=== PATIENT | female | born 1970 | race Caucasian/White ===

== ENCOUNTER 2019-11-05 02:51 | Emergency (ER) | payer MEDICAID ==
[~2019-11-05] VITALS: Ht 160 cm; Wt 77.2 kg
[2019-11-05] MEDS ORDERED: diphenhydrAMINE 25mg capsule PO ONE (03:40)
[2019-11-05] MEDS ORDERED: DESV50TA PO (03:41)
[2019-11-05] MEDS ORDERED: QUET-1 PO (03:43)
[2019-11-05] MEDS ORDERED: LISI-600 PO (03:43)
[2019-11-05] MEDS ORDERED: OMEP10CA5 PO (03:43)
[2019-11-05 03:55] LABS: ALANINE AMINOTRANSFERASE 22 U/L (12-78); ALBUMIN 3.5 G/DL (3.4-5.0); ALBUMIN/GLOBULIN RATIO 0.9 (1.1-1.5); ALKALINE PHOSPHATASE 90 IU/L (46-116); ANION GAP 12 (8-16); ASPARTATE AMINO TRANSFERASE 17 U/L (10-37); BILIRUBIN,TOTAL 0.2 MG/DL (0.1-1.0); BLOOD UREA NITROGEN 13 MG/DL (7-18); BUN/CREATININE RATIO 9.7 (6.6-38.0); CALCIUM 8.2 MG/DL (8.5-10.1); CHLORIDE 108 MMOL/L (99-107); CREATININE 1.34 MG/DL (0.40-0.90); GLUCOSE 115 MG/DL (70-104); POTASSIUM 3.5 MMOL/L (3.5-5.1); SODIUM 144 MMOL/L (135-145); TOTAL PROTEIN 7.6 G/DL (6.4-8.2); eGFR 42 ML/MIN
[2019-11-05 03:57] LABS: BASOPHILS # (AUTO) 0.2 X10'3 (0-0.2); BASOPHILS % (AUTO) 1.3 % (0-1); EOSINOPHILS # (AUTO) 2.1 X10'3 (0-0.9); HEMATOCRIT 28.4 % (35.0-45.0); HEMOGLOBIN 8.8 g/dl (12.0-16.0); LYMPHOCYTES # (AUTO) 3.4 X10'3 (1.1-4.8); LYMPHOCYTES % (AUTO) 25.6 % (21-51); MEAN CORPUSCULAR HEMOGLOBIN 19.8 PG (27.0-31.0); MEAN CORPUSCULAR HGB CONC 31.1 g/dL (33.0-36.5); MEAN CORPUSCULAR VOLUME 63.5 FL (78-98); MEAN PLATELET VOLUME 7.2 FL (7.4-10.4); MONOCYTES # (AUTO) 0.9 X10'3 (0-0.9); MONOCYTES % (AUTO) 7.1 % (2-12); NEUTROPHILS # (AUTO) 6.6 X10'3 (1.8-7.7); PLATELET COUNT 557 X10'3 (140-440); RED BLOOD COUNT 4.47 X10'6 (4.20-5.60); RED CELL DISTRIBUTION WIDTH 16.5 % (11.5-14.5); WHITE BLOOD COUNT 13.1 X10'3 (4.5-11.0)
[2019-11-05 04:05] LABS: CLARITY,URINE CLOUDY (Clear); COLOR,URINE YELLOW (Yellow); GLUCOSE, URINE NEGATIVE (Neg); KETONES,URINE TRACE mg/dl (Neg); LEUKOCYTE ESTERASE ,URINE NEGATIVE (Neg); NITRITES, URINE NEGATIVE (Neg); OCCULT BLOOD,URINE TRACE-INTACT (Neg); PROTEIN,URINE 100 mg/dl (Neg)
[2019-11-05 04:05] LABS: ETHANOL 0.161 GM/DL (0.0-0.010)
--- NOTE | 2019-11-05 04:05 | NUR ---
pt sitting up in bed crying went to bedside and asked if pt was ok . pt reports she is having abdominla pain . i askedd where the pain was . She points to mid epigastric . Dr Silva notified of abd pain , no orders given . will further assess patients chart to see if there is any standing orders .
[2019-11-05 04:06] LABS: URINE HCG NEGATIVE (NEG)
[2019-11-05 04:13] LABS: UA COLLECTION TYPE CLN CATCH MIDSTREAM
[2019-11-05 04:15] LABS: BACTERIA,URINE 3+ /HPF (Neg); RBC,URINE 0-2 /HPF (0-2); SQUAMOUS EPITHELIAL CELL,UR MODERATE /LPF (FEW); WBC,URINE 0-4 /HPF (0-4)
--- NOTE | 2019-11-05 04:15 | NUR ---
REVIEWED PATIENTS CHART . NO MEDICATION ORDER FOR PAIN MANAGMENT. PT NO CURRENTLY SITTING IN BED UPRIGHT WITHOUT TEARS LOOKING AT NURSING STAFF .
[2019-11-05 04:18] LABS: URINE AMPHETAMINE SCREEN NEGATIVE (Neg); URINE BARBITUATE SCREEN NEGATIVE (Neg); URINE BENZODIAZEPINES SCREEN NEGATIVE (Neg); URINE CANNABINOID SCREEN NEGATIVE (Neg); URINE COCAINE SCREEN NEGATIVE (Neg); URINE METHADONE SCREEN NEGATIVE (Neg); URINE OPIATE SCREEN NEGATIVE (Neg); URINE PHENCYCLIDINE SCREEN NEGATIVE (Neg)
[2019-11-05 04:20] LABS: HYPOCHROMASIA 2+; MICROCYTOSIS 2+; PLATELET ESTIMATE INCREASED
[2019-11-05 04:21] LABS: ANISOCYTOSIS 3+
--- NOTE | 2019-11-05 04:25 | NUR ---
THIS RECORDER LOKS OVER AT PATIENT ROOM . PATIENTYELLING AT ME STATING THAT I DID NOT LOOK IN HER CHART. CHARGE NURSE NOTIFIED AND AT BEDSIDE
--- NOTE | 2019-11-05 05:27 | NUR ---
PATIENT IN BED EYES CLOSED RR EVEN UN LABORED NO COVERS NO OBSERVABLE S/S OF ACUTE STRESS AT THIS TIME WILL CONTINUE TO MONITOR
--- NOTE | 2019-11-05 06:00 | NUR ---
Resting in bed
[2019-11-05] MEDS ORDERED: LORazepam 1 MG tablet PO ONE (06:55)
--- NOTE | 2019-11-05 07:00 | NUR ---
Resting in bed
[2019-11-05] MEDS ORDERED: venlafaxine 25mg tablet PO SCH (07:01)
--- NOTE | 2019-11-05 07:26 | NUR ---
packet is faxed to [facility]
[2019-11-05] MEDS ORDERED: pantoprazole 40mg Tablet.DR PO SCH (07:30)
[2019-11-05] MEDS ORDERED: acetaminophen 325mg tablet PO ONE (07:35)
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
[2019-11-05] MEDS ORDERED: lisinopril 20mg tablet PO SCH (08:00)
[2019-11-05] MEDS ORDERED: DESVENLAFAXINE SUCCINATE 50 MG PO SCH (08:00)
--- NOTE | 2019-11-05 08:00 | NUR ---
Resting in bed
--- NOTE | 2019-11-05 09:00 | NUR ---
Resting in bed
--- NOTE | 2019-11-05 09:12 | NUR ---
Breaking Primary RN [facility] at bedside, pt calm, will continue to monitor
[2019-11-05 09:52] VITALS: BP 150/100
[2019-11-05] MEDS ORDERED: quetiapine 100mg tablet PO SCH (21:00)
== END 2019-11-05 09:58 | disposition home or self-care (01) ==
LOC: ER 02:57
DX: R45.851 Suicidal ideations (principal); F32.9 Major depressive disorder, single episode, unspecified; D64.9 Anemia, unspecified; F10.129 Alcohol abuse with intoxication, unspecified; Z72.89 Other problems related to lifestyle; Z79.899 Other long term (current) drug therapy; Y90.0 Blood alcohol level of less than 20 mg/100 ml; Y09 Assault by unspecified means
CPT/HCPCS: 36415; 80053; 80305; 80320; 81001; 81025; 84443; 85025; 99285; Q0163

== ENCOUNTER 2020-04-04 22:42 | Emergency (ER) | payer MEDICAID ==
[~2020-04-04] VITALS: Ht 170.2 cm; Wt 82.0 kg
[~2020-04-04 22:42] MED LIST: DESV50TA PO; LISI-600 PO; OMEP10CA5 PO; QUET-1 PO
[2020-04-04] MEDS ORDERED: normal saline 1000ML IV soln IVB ONE ×2 (22:55→23:55)
[2020-04-04] MEDS ORDERED: charcoal/sorbitol 50gm/240ml suspension PO ONE (22:55)
[2020-04-04] MEDS ORDERED: LIDOcaine 2% 10ml TOPICAL JELLY (Urojet) TP ONE (22:55)
[2020-04-04 22:59] LABS: BASOPHILS # (AUTO) 0.1 X10'3 (0-0.2); BASOPHILS % (AUTO) 0.8 % (0-1); EOSINOPHILS # (AUTO) 0.1 X10'3 (0-0.9); EOSINOPHILS % (AUTO) 1.2 % (0-6); HEMATOCRIT 28.8 % (35.0-45.0); HEMOGLOBIN 8.6 g/dl (12.0-16.0); LYMPHOCYTES # (AUTO) 4.4 X10'3 (1.1-4.8); LYMPHOCYTES % (AUTO) 47.6 % (21-51); MEAN CORPUSCULAR HEMOGLOBIN 18.5 PG (27.0-31.0); MEAN CORPUSCULAR HGB CONC 29.9 g/dL (33.0-36.5); MONOCYTES # (AUTO) 0.7 X10'3 (0-0.9); MONOCYTES % (AUTO) 7.7 % (2-12); NEUTROPHILS % (AUTO) 42.7 % (42-75); PLATELET COUNT 382 X10'3 (140-440); RED BLOOD COUNT 4.66 X10'6 (4.20-5.60); RED CELL DISTRIBUTION WIDTH 18.8 % (11.5-14.5); WHITE BLOOD COUNT 9.3 X10'3 (4.5-11.0)
[2020-04-04 23:10] LABS: URINE HCG NEGATIVE (NEG)
[2020-04-04 23:14] LABS: ALANINE AMINOTRANSFERASE 19 U/L (12-78); ALBUMIN 3.6 G/DL (3.4-5.0); ALBUMIN/GLOBULIN RATIO 0.9 (1.1-1.5); ALKALINE PHOSPHATASE 60 IU/L (46-116); ANION GAP 12 (8-16); ASPARTATE AMINO TRANSFERASE 13 U/L (10-37); BILIRUBIN,TOTAL 0.3 MG/DL (0.1-1.0); BLOOD UREA NITROGEN 9 MG/DL (7-18); BUN/CREATININE RATIO 9.8 (6.6-38.0); CALCIUM 8.1 MG/DL (8.5-10.1); CHLORIDE 105 MMOL/L (99-107); CREATININE 0.92 MG/DL (0.40-0.90); GLUCOSE 104 MG/DL (70-104); POTASSIUM 3.1 MMOL/L (3.5-5.1); SODIUM 140 MMOL/L (135-145); TOTAL CARBON DIOXIDE 23.5 MMOL/L (24-32); TOTAL PROTEIN 7.4 G/DL (6.4-8.2); eGFR 65 ML/MIN
[2020-04-04 23:15] LABS: CLARITY,URINE CLEAR (Clear); COLOR,URINE STRAW (Yellow); GLUCOSE, URINE NEGATIVE (Neg); KETONES,URINE NEGATIVE (Neg); LEUKOCYTE ESTERASE ,URINE SMALL (Neg); NITRITES, URINE NEGATIVE (Neg); OCCULT BLOOD,URINE NEGATIVE (Neg); PROTEIN,URINE NEGATIVE (Neg); UROBILINOGEN,URINE 0.2 E.U/dL (0.2-1.0)
[2020-04-04 23:16] LABS: UA COLLECTION TYPE STRAIGHT CATH
[2020-04-04 23:22] LABS: BACTERIA,URINE NONE SEEN /HPF (Neg); RBC,URINE NONE SEEN /HPF (0-2); SQUAMOUS EPITHELIAL CELL,UR FEW /LPF (FEW); WBC,URINE 0-4 /HPF (0-4)
[2020-04-04 23:23] LABS: ACETAMINOPHEN < 2.0 UG/ML (10-30)
[2020-04-04 23:23] LABS: URINE AMPHETAMINE SCREEN NEGATIVE (Neg); URINE BARBITUATE SCREEN NEGATIVE (Neg); URINE BENZODIAZEPINES SCREEN NEGATIVE (Neg); URINE CANNABINOID SCREEN NEGATIVE (Neg); URINE COCAINE SCREEN NEGATIVE (Neg); URINE METHADONE SCREEN NEGATIVE (Neg); URINE OPIATE SCREEN NEGATIVE (Neg); URINE PHENCYCLIDINE SCREEN NEGATIVE (Neg)
[2020-04-04 23:38] LABS: ABG BASE EXCESS -6.1 mmol/L (-2.0-2.0); ABG HCO3 18.5 mmol/L (22.0-26.0); ABG OXYGEN SATURATION 95.4 % (94-97); ABG PCO2 (T) 31.9 mmHg (32.0-45.0); ALLEN'S TEST POSITIVE; FCOHb 0.4 % (0.0-3.9); FMetHb 0.1 % (0.0-1.5); FO2Hb 94.9 % (94-97); PATIENT TEMPERATURE 36.3; TOTAL HEMOGLOBIN 9.3 G/dl (12.0-16.0)
--- NOTE | 2020-04-04 23:58 | NUR ---
PATIENT HYPOTENSIVE, MD AWARE ORDERS 2L NS BOLUS AND SECOND IV. BOLUS STARTED AT THIS TIME
--- NOTE | 2020-04-05 00:13 | NUR ---
PATIENTS BP IMPROVED 105/50 MD AWARE
--- NOTE | 2020-04-05 00:23 | NUR ---
CALLED POISON CONTROL TALKED WITH HUI STATES NO ACTIVATED CHARCOAL DUE TO LONGER THAN 1 HOUR OF INDIGESTION AND IS NOT AN ER FORM, WATCH FOR SEIZURES USE BENZO'S, QTC ELONGATION>500 1 G MAGNESIUM 6-8 HRS OBSERVATION FOR PATIENT TO METABOLIZE MEDICATION MD AWARE
[2020-04-05] MEDS ORDERED: magnesium 2GM in 50ml NS 50 ML IV ONE ×2 (02:15→06:40)
--- NOTE | 2020-04-05 02:26 | NUR ---
PATIENT 4 HR EKG SHOWS QTC ELONGATION > 500 PER POISON CONTROL TO ADMINISTER MAGNESIUM, DR. SOTELO ORDERED AND IS AWARE OF CURRENT EKG, PATIENT IN BED HOB 45 DEGREES ASPIRATION PERCAUTIONS IN PLACE, RR EVEN UN LABORED NO OBSERVABLE S/S OF AIRWAY BEING COMPROMISED WILL CONTINUE TO MONITOR.
--- NOTE | 2020-04-05 04:15 | NUR ---
PACKET FAXED TO [facility]
--- NOTE | 2020-04-05 05:32 | NUR ---
PATIENT IN BED HOB 45 DEGREES, RR EVEN UN LABORED NO OBSERVABLE S/S OF RESPIRATORY DEPRESSION, PATIENT EASIER TO AROUSE BY NAME.
--- NOTE | 2020-04-05 05:54 | NUR ---
PATIENT IS NOT AWAKE ENOUGHT TO QUESTION ON PERCRIBED MEDICATIONS
--- NOTE | 2020-04-05 05:55 | NUR ---
WILL DELEGATE MED REC TO DAY SHIFT WHEN PATIENT IS AWAKE AND ORIENTED
[2020-04-05] MEDS ORDERED: potassium Cl 10 mEq/100mL bag IV ONE ×2 (06:15→10:35)
--- NOTE | 2020-04-05 06:44 | NUR ---
REPEATED EKG TO CHECK THE OTC LEVEL ,IS GREATER THAN 500 ,NOTIFIED DR ARZOLA,VERBAL ORDER FOR MAG 1GM IV INFUSION ONCE,SPOKE TO PHARMACIST JAVIER PER HIM WE DO NOT HAVE 1 GM MAG ,NOTIFIED DR ARZOLA ORDER FOR 2 GM MAG IV INFUISON ONCES FOR PROLONG QTC .ASPIRATION PRECAUTION IN PLACE HOB AT 45 DEGREE. NEREIDA GUO WENT TO GET MEDS FORTHE PT FROM PHARMACY [facility]
--- NOTE | 2020-04-05 08:44 | NUR ---
recevied call from janelle from posion control discussed the ekg finding informed that pt had repeat ekg at 0630 qtc 506,qrs 61 ,md ordered 2 gm mag iv .pt recevied total of 4gm mag iv.pt is still not awake or oriented ,respond to voice .pt recevied 10 meq pottassium iv for k+3.1 .as per posion control recheck the ekg in 4-6 hr.no recommendation other than that.
[2020-04-05] MEDS ORDERED: ZIPR40CA14 PO (11:07)
[2020-04-05] MEDS ORDERED: DESV100T16 PO (11:07)
[2020-04-05] MEDS ORDERED: BUSP7.5T5 PO (11:07)
[2020-04-05] MEDS ORDERED: PRAZ1CAP5 PO (11:07)
[2020-04-05] MEDS ORDERED: OMEP-50 PO (11:07)
[2020-04-05 11:29] VITALS: BP 156/91
--- NOTE | 2020-04-05 11:59 | NUR ---
pt ekg done q5 hr QT/QTC 362/471,QRS 70 .WILL CONT TO MONITOR.
--- NOTE | 2020-04-05 14:38 | NUR ---
assisted to bathroom via wc, provided water.
--- NOTE | 2020-04-05 14:52 | NUR ---
resting quietly on his right side
--- NOTE | 2020-04-05 16:45 | NUR ---
pt is waking up. ambulated to the bathroom independently
== END 2020-04-05 18:14 | disposition home or self-care (01) ==
LOC: ER 22:42
DX: T43.592A Poisoning by other antipsychotics and neuroleptics, intentional self-harm, initial encounter (principal); R41.82 Altered mental status, unspecified; F10.129 Alcohol abuse with intoxication, unspecified; E87.6 Hypokalemia; F32.9 Major depressive disorder, single episode, unspecified; Z72.89 Other problems related to lifestyle; Z79.899 Other long term (current) drug therapy; Y92.89 Other specified places as the place of occurrence of the external cause; Y90.8 Blood alcohol level of 240 mg/100 ml or more
CPT/HCPCS: 36415; 36600; 71045; 80053; 80305; 80320; 80329; 81001; 81025; 82803; 84443; 85018; 85025; 87088; 93005; 96365; 96366; 96367; 96368; 99285; J3475; J3480; J7030